=== PATIENT | male | born 1965 | race Caucasian/White ===

== ENCOUNTER 2022-11-06 12:41 | Day surgery (SDC) | payer MEDICAID ==
[~2022-11-06 12:41] MED LIST: AMLO-258 PO; BUME1TAB34 PO; CALC0.253 PO; CARV12 PO; INSU100V52 SQ; METO-296 PO; SODIUM CHLORIDE 0.9% 1,000 ML IV ONE; SODIUM CHLORIDE 0.9% 1,000 ML ONE
[2022-11-06] MEDS ORDERED: PROPOFOL 1% 20 ML VIAL IVP ONE (12:42)
[2022-11-06] MEDS ORDERED: LIDOCAINE/PF 2% 5 ML VIAL IM ONE (12:42)
[2022-11-06] MEDS ORDERED: SODIUM CHLORIDE 0.9% 1,000 ML ONE (13:20)
[2022-11-06 13:58] LABS: GLUCOMETER DEV NAME(LOC) SDS.
== END 2022-11-06 16:15 | disposition home or self-care (01) ==
LOC: SURGERY 12:41
PROVIDERS: ATTEND Internal Medicine Gastroenterology
DX: D12.3 Benign neoplasm of transverse colon (principal); K29.50 Unspecified chronic gastritis without bleeding; D12.2 Benign neoplasm of ascending colon; I12.0 Hypertensive chronic kidney disease with stage 5 chronic kidney disease or end stage renal disease; E11.22 Type 2 diabetes mellitus with diabetic chronic kidney disease; N18.6 End stage renal disease; K21.9 Gastro-esophageal reflux disease without esophagitis; Z79.4 Long term (current) use of insulin; Z98.890 Other specified postprocedural states; Z79.899 Other long term (current) drug therapy; Z93.6 Other artificial openings of urinary tract status
CPT/HCPCS: 43239; 82962; 88305; 88312; 88313; C1769; J2704; J3490; J7030